=== PATIENT | male | born 1980 | race African-American/Black ===

== ENCOUNTER 2018-05-02 15:23 | Emergency (ER) | payer OTHER ==
[2018-05-02 15:30] VITALS: BP 136/94; PULSE 99; TEMP 98; BMI 23.0
--- NOTE | 2018-05-02 15:34 | PDOC ---
Rapid Medical Evaluation Chief Complaint: Injury Time Seen by Provider: 05/02/18 15:33 Medical Evaluation: Allergies Allergy/AdvReac Type Severity Reaction Status Date / Time No Known Allergies Allergy Verified 05/02/18 15:27 Vital Signs Temp Pulse Resp BP Pulse Ox 98.0 F 99 H 18 136/94 100 05/02/18 15:27 05/02/18 15:27 05/02/18 15:27 05/02/18 15:27 05/02/18 15:27 05/02/18 15:33 I have performed a brief in-person evaluation of this patient. The patient presents with a chief complaint of: b/l LE pain s/p injury Pertinent physical exam findings:defer to FT I have ordered the following:nothing The patient will proceed to the ED for further evaluation. Discharge Disposition - Diagnosis Leg injury Qualifiers: Encounter type: initial encounter Laterality: unspecified laterality Qualified Code(s): S89.90XA - Unspecified injury of unspecified lower leg, initial encounter - Referrals - Patient Instructions - Post Discharge Activity
[2018-05-02] MEDS ORDERED: IBUPROFEN 400 MG TABLET (FP) PO ONE ×2 (16:22→16:24)
--- NOTE | 2018-05-02 16:29 | PDOC ---
History of Present Illness - General Chief Complaint: Injury Stated Complaint: FALL Time Seen by Provider: 05/02/18 15:33 History Source: Patient Exam Limitations: No Limitations - History of Present Illness Initial Comments: 05/02/18 16:22 HISTORY OF PRESENT ILLNESS: 37-year-old male presents emergency for evaluation of bilateral foot and ankle pain status post tripping over debris in an alleyway. Patient states she was currently to alleyway when he stepped on some loose [place] gravel causing him to fall to the ground and striking both ankles on each other during the fall. Patient reports after striking his ankles on each other she twisted both ankles causing him to be unable to walk initially. After laying on the ground for "a few minutes" he was able to get up and hop back to his job where he was sent home for the day. Patient into the cab to his home waited an hour and then came to the emergency department. No recent travel or sick contacts. PAST MEDICAL HISTORY: Denies past medical history SURGICAL HISTORY: Denies ALLERGIES: No known drug allergies REVIEW OF SYSTEMS General/Constitutional: Denies fever or chills. Denies weakness, weight change. HEENT: Denies change in vision. Denies ear pain or discharge. Denies sore throat. Cardiovascular: Denies chest pain or shortness of breath. Respiratory: Denies cough, wheezing, or hemoptysis. Gastrointestinal: Denies nausea, vomiting, diarrhea or constipation. Denies rectal bleeding. Genitourinary: Denies dysuria, frequency, or change in urination. Musculoskeletal: Bilateral foot and ankle pain. Denies neck or back pain. Skin and breasts: Denies rash or easy bruising. Neurologic: Denies headache, vertigo, loss of consciousness, or loss of sensation. Psychiatric: Denies depression or anxiety. Endocrine: Denies increased thirst. Denies abnormal weight change. Hematologic/Lymphatic: Denies anemia, easy bleeding, or history of blood clots. Allergic/Immunologic: Denies hives or skin allergy. Denies latex allergy. PHYSICAL EXAM General Appearance: Well-appearing, appropriately dressed. No apparent distress , no intoxication. Musculoskeletal/Extremities: Normal inspection. FROM of all extremities, normal capillary refill. Tenderness present with left medial and lateral malleolus, left navicular bone and base of the fifth metatarsal of the right foot. Minimal swelling appreciated to the dorsum of the left foot. 2+ DP pulses present bilaterally Integumentary: Appropriate color, dry, warm. No abrasions, lacerations, cyanosis, erythema, jaundice or rash. Neurologic: aircraft technician II-XII intact. Fully oriented, alert. Appropriate mood/affect. Motor strength 5/5. No appreciable EOM palsy, facial droop or sensory deficit. Past History - Past Medical History Allergies/Adverse Reactions: Allergies Allergy/AdvReac Type Severity Reaction Status Date / Time No Known Allergies Allergy Verified 05/02/18 15:27 Home Medications: Ambulatory Orders NK [No Known Home Medication] 05/02/18 COPD: No - Immunization History Td Vaccination: Yes (2009) Immunization Up to Date: Yes - Suicide/Smoking/Psychosocial Hx Smoking Status: Yes Smoking History: Current every day smoker Number of Cigarettes Smoked Daily: 20 Information on smoking cessation initiated: No Hx Alcohol Use: Yes Drug/Substance Use Hx: No *Physical Exam - Vital Signs Last Vital Signs Temp Pulse Resp BP Pulse Ox 98.0 F 99 H 18 136/94 100 05/02/18 15:27 05/02/18 15:27 05/02/18 15:27 05/02/18 15:27 05/02/18 15:27 Moderate Sedation - Procedure Monitoring Vital Signs: Procedure Monitoring Vital Signs Temperature 98.0 F 05/02/18 15:27 Pulse Rate 99 H 05/02/18 15:27 Respiratory Rate 18 05/02/18 15:27 Blood Pressure 136/94 05/02/18 15:27 O2 Sat by Pulse Oximetry (%) 100 05/02/18 15:27 ED Treatment Course - RADIOLOGY Radiology Studies Ordered: Category Date Time Status ANKLE & FOOT-LEFT* [RAD] Stat Radiology 05/02/18 16:22 Ordered ANKLE & FOOT-RIGHT* [RAD] Stat Radiology 05/02/18 16:22 Ordered Medical Decision Making - Medical Decision Making 05/02/18 16:29 A/P: 87-year-old male bilateral ankle and foot pain status post trip and fall Bony tenderness to the left medial and lateral malleolus, left navicular and base of the fifth metatarsal of the right foot No tenderness to palpation of the knees bilaterally Full range of motion of ankle Capillary refills within normal limits to both feet 2+ DP pulses present X-rays, Motrin, reassess 05/02/18 17:27 X-rays as read by me: No acute fractures or dislocations present. Vern wrap and Aircast left ankle. I will discharge the patient home to follow-up with orthopedist as needed. I discussed the physical exam findings, ancillary test results and final diagnoses with the patient. I answered all of the patient's questions. The patient was satisfied with the care received and felt comfortable with the discharge plan and treatment plan. The patient will call their primary care physician within 24 hours to arrange follow-up and will return to the Emergency Department with any new, persistent or worsening symptoms. *DC/Admit/Observation/Transfer Diagnosis at time of Disposition: Right foot pain Left ankle sprain Qualifiers: Encounter type: initial encounter Involved ligament of ankle: unspecified ligament Qualified Code(s): S93.402A - Sprain of unspecified ligament of left ankle, initial encounter - Discharge Dispostion Disposition: HOME Condition at time of disposition: Stable Decision to Admit order: No - Referrals Referrals: David Ambrocio MD [Staff Physician] - - Patient Instructions Additional Instructions: Take Tylenol or Motrin as needed for pain. Follow manufacturers instructions for appropriate dosage. Apply ice for 20 minutes and removed for at least 20 minutes before reapplying the ice. Keep Vern wrap on your ankle as much as possible to help decrease some of the swelling control pain. Whenever possible keep your foot elevated to decrease swelling to your ankle. You've been given the number for an orthopedist. If symptoms do not resolve within the next 7 days call the orthopedist for further evaluation. Return to emergency department for discoloration of the foot, numbness or tingling to the foot, worsening pain, or any other concerns. Thank you very much for choosing us to provide your emergent healthcare needs. - Post Discharge Activity
== END 2018-05-02 17:35 | disposition home or self-care (01) ==
LOC: JERFT 15:23
DX: M79.671 Pain in right foot (principal); S93.402A Sprain of unspecified ligament of left ankle, initial encounter; W18.09XA Striking against other object with subsequent fall, initial encounter; Y93.89 Activity, other specified; Y92.89 Other specified places as the place of occurrence of the external cause; F17.210 Nicotine dependence, cigarettes, uncomplicated
CPT/HCPCS: 73610-TC-LT-FY; 73610-TC-RT-FY; 73630-TC-LT; 73630-TC-RT-FY; 99281-25

== ENCOUNTER 2020-04-25 16:13 | Emergency (ER) | payer OTHER ==
[2020-04-25 16:24] VITALS: BP 138/81; PULSE 90; TEMP 98.5; BMI 24.4
[2020-04-25] MEDS ORDERED: ACETAMINOPHEN 500 MG TABLET (FP) PO ONE (16:35)
[2020-04-25] MEDS ORDERED: LIDOCAINE HCL 1%, 10 MG/ML (50 mL VIAL) INF ONE (17:09)
[2020-04-25] MEDS ORDERED: LIDOCAINE HCL 1%, 10 MG/ML (20ML VIAL) ONE (17:15)
[2020-04-25] MEDS ORDERED: ACETAMINOPHEN 325 MG TABLET (FP) ONE (17:22)
[2020-04-25] MEDS ORDERED: AMOX TR/POT CLAV 875MG/125MG TABLETS (FP) PO ONE (17:56)
[2020-04-25] MEDS ORDERED: AMOX TR/POT CLAV 875MG/125MG TABLETS (FP) ONE (18:06)
== END 2020-04-25 18:11 | disposition home or self-care (01) ==
LOC: FER 16:13
PROC: 0HQGXZZ Repair Left Hand Skin, External Approach (ICD-10-PCS; principal; 2020-04-25)
PROC: 0HQFXZZ Repair Right Hand Skin, External Approach (ICD-10-PCS; 2020-04-25)
DX: S69.91XA Unspecified injury of right wrist, hand and finger(s), initial encounter (principal); S62.635A Displaced fracture of distal phalanx of left ring finger, initial encounter for closed fracture; S62.637A Displaced fracture of distal phalanx of left little finger, initial encounter for closed fracture; S62.634A Displaced fracture of distal phalanx of right ring finger, initial encounter for closed fracture
CPT/HCPCS: 73140-TC-LT-FY; 73140-TC-RT-FY; 99284-25

== ENCOUNTER 2020-05-05 14:29 | Emergency (ER) | payer OTHER ==
[2020-05-05 14:33] VITALS: BP 132/90; PULSE 95
== END 2020-05-05 15:00 | disposition home or self-care (01) ==
LOC: FER 14:29
DX: Z48.02 Encounter for removal of sutures (principal)
CPT/HCPCS: 99281-25